=== PATIENT | female | born 1975 | race Two or more races ===

== ENCOUNTER 2017-01-21 08:20 | Emergency (ER) | payer OTHER ==
[~2017-01-21] VITALS: Ht 154.9 cm; Wt 60.0 kg
[2017-01-21 08:24] VITALS: BP 151/102
[2017-01-21] MEDS ORDERED: SODIUM CHLORIDE 0.9% 1,000 ML IV ONE (09:03)
[2017-01-21 09:26] LABS: HEMATOCRIT 42.5 % (34.6-47.8); HEMOGLOBIN 14.5 g/dL (11.7-16.4); WHITE BLOOD COUNT 5.9 x10^3/uL (3.4-10)
[2017-01-21] MEDS ORDERED: KETOROLAC 30 MG/1 ML IVPush ONE (09:30)
[2017-01-21] MEDS ORDERED: SODIUM CHLORIDE 0.9% 1,000ML IVBOLUS ONE (09:30)
[2017-01-21] MEDS ORDERED: KETOROLAC 30 MG/1 ML ONE (09:33)
[2017-01-21 09:37] LABS: BLOOD UREA NITROGEN 9 mg/dL (7-18)
== END 2017-01-21 11:06 | disposition home or self-care (01) ==
LOC: ED 11:00
DX: J02.9 Acute pharyngitis, unspecified (principal); S80.11XA Contusion of right lower leg, initial encounter; X58.XXXA Exposure to other specified factors, initial encounter; Y93.89 Activity, other specified; Y99.8 Other external cause status; Y92.89 Other specified places as the place of occurrence of the external cause
CPT/HCPCS: 36415; 80048; 81003; 82040; 84436; 84443; 85025; 87081; 87880; 93005; 93971; 96374; 99285; J1885; J7030